=== PATIENT | female | born 1950 | race Caucasian/White ===

== ENCOUNTER → 2020-05-03 09:47 | Outpatient (BNVA) | payer MEDICARE, SELFPAY | PROVIDERS: Visit Provider Obstetrics & Gynecology | DX: N81.10 Cystocele, unspecified (principal) | CPT/HCPCS: 81000 ==

== ENCOUNTER → 2020-05-17 13:04 | Outpatient (BNVA) | payer MEDICARE, SELFPAY | PROVIDERS: Visit Provider Obstetrics & Gynecology | DX: N81.10 Cystocele, unspecified (principal); N81.4 Uterovaginal prolapse, unspecified; N81.6 Rectocele; Z20.828 Contact with and (suspected) exposure to other viral communicable diseases | CPT/HCPCS: 87635 ==

== ENCOUNTER 2020-05-22 11:37 | Observation (INO) | payer MEDICARE, SELFPAY ==
[2020-05-20 12:25] VITALS: BMI 30.5
[2020-05-20 13:18] LABS: Add Urine Microscopic? NO
--- NOTE | 2020-05-20 13:18 | P.ANESASSM_ITS ---
Pre-Anesthetic Assessment Pre-Anesthetic Assessment: Height/Weight: Height 1.7 m Weight 88.451 kg Preop Diagnosis: Cystocele, rectocele, uterine prolapse Proposed Procedure: Operation Date: 05/22/20 12:05 Proposed Procedures p Total Vaginal Hysterectomy 38605 N81.4 N81.10 N81.6(Not Applicable) - Bismark Zapata MD s Colporrhaphy Anterior augmented with Allograft 34721(Not Applicable) - Bismark Zapata MD s Posterior Repair Posterior Colporrhaphy augmented with Allograft 08674(Not Applicable) - Bismark Zapata MD s Midurthral Single incision Sling 38197(Not Applicable) - Bismark Zapata MD s Bilateral Sacrospinous Ligament Suspension 70241(Bilateral) - Bismark Zapata MD Familial anesthetic complications: none Social: Social History: No alcohol and No tobacco Exam: Pre-Anes Outpt Exam: alert, oriented x 3, clear to auscultation bilater ally and regular rate & rhythm Airway: Cervical ROM: WNL MP: 4 Dentition: Caps and Other (mising ) GI: GI: GERD and Hiatus hernia Anesthetic Plan: ASA status: 1 Anesthesia: General Risk of > 500 ml blood loss (7ml/kg in children): No PFSH Anesthesia PFSH: Family History Sister Breast cancer, Onset Age: 37 Thyroid condition Mother Diabetes Brother Hypertension Denies family history of Clotting disorder Hyperlipidemia Anesthesia complication Bleeding disorder Stroke Social History (Updated 05/20/20 @ 08:49 by Michela Brenner RN) Smoking and tobacco status: former smoker Quit status (tobacco): has quit using tobacco Year quit tobacco: 30 years ago Alcohol intake: never Substance/Drug Use: never Data Anesthesia CBC & Chem 7: 05/20/20 13:08 05/20/20 13:08 Cardiac Studies: No Data to Display
[2020-05-20 13:25] LABS: Bilirubin Urine Neg (Negative); Blood Urine Neg (Negative); Glucose Urine UA Norm (Normal); Ketones Urine Negative (Negative); Leukocyte Esterase Urine Negative (Negative); Nitrate Urine Negative (Negative); Protein Urine Neg (Negative); Urine Appearance Clear (CLEAR); Urine Color Yellow (Yellow); Urobilinogen Urine Norm (Negative); pH Urine 7 (5-7)
[2020-05-20 13:33] LABS: Basophils % 0.5 %; Eosinophils # 0.1 10^3/uL (0.0-0.8); Eosinophils % 2.3 %; Hematocrit 43.4 % (37.0-47.0); Hemoglobin 14.3 g/dL (11.5-15.3); Lymphocytes # 1.5 10^3/uL (0.8-4.8); Lymphocytes % 24.3 %; Mean Corpuscular HGB Conc 32.9 g/dL (30.0-36.0); Mean Corpuscular Hemoglobin 29.4 pg (28.0-34.0); Mean Corpuscular Volume 89.3 fL (81-99); Mean Platelet Volume 10.7 fL (7.4-10.4); Monocytes # 0.5 10^3/uL (0.2-0.9); Monocytes % 7.5 %; Neutrophils # 3.89 10^3/uL (1.8-7.7); Neutrophils % 65.2 %; Nucleated Red Blood Cells % 0 %; Platelet Count 256 10^3/cmm (130-400); Red Blood Count 4.86 10^6/uL (4.1-5.3); Red Cell Distribution Width 12.9 % (12.1-15.1)
[2020-05-20 14:41] LABS: Alanine Aminotransferase 18 U/L (0-33); Albumin Level 4.5 g/dL (3.5-5.2); Alkaline Phosphatase 58 IU/L (35-105); Anion Gap 16.3 (5-19); Aspartate Amino Transferase 16 U/L (0-32); Blood Urea Nitrogen 12 mg/dL (8-23); Calcium 8.7 mg/dL (8.5-10.5); Carbon Dioxide 23 mmol/L (22-29); Chloride 105 mmol/L (98-107); Globulin 2.9 g/dL (1.3-4.6); Glucose 94 mg/dL (65-115); Osmolality Calculated 290 mOsm/kg (285-295); Potassium 4.3 mmol/L (3.5-5.1); Sodium 140 mmol/L (136-145); Total Bilirubin 0.2 mg/dL (0.15-1.2); Total Protein 7.4 g/dL (6.6-8.7)
[2020-05-22] VITALS (17 sets, daily range): BP systolic 105–168; BP diastolic 58–107; PULSE 76–102; RESP 12–23; TEMP 36.4–36.8; O2SAT 91–99
--- NOTE | 2020-05-22 07:20 | ECG_ITS ---
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 Measurements Intervals Fromberg Rate: 79 P: 32 WV: 131 QRS: 5 QRSD: 89 T: 58 QT: 378 QTc: 436 Interpretive Statements SINUS RHYTHM No previous ECG available for comparison Electronically Signed On 05-22-2020 13:57:21 CDT by Romelia Arriola M.D. [email or web address]
[2020-05-22] MEDS: enoxaparin 30 mg/0.3 mL Syringe SUBCUT (07:40)
[2020-05-22] MEDS: scopolamine 1.5 Patch 1 PATCH TRANSDERMA (07:42)
[2020-05-22] MEDS: sodium chloride 0.9% 1,000 ML 30 ML IV (07:45)
[2020-05-22] MEDS: sodium chloride 0.9% 500 ML IV (07:46)
--- NOTE | 2020-05-22 08:30 | P.HPUD_ITS ---
Surgery/Procedure H&P Update DATE OF PROCEDURE: May 22, 2020 DATE H&P PERFORMED: 05/20/20 H&P UPDATE INFORMATION: I have reviewed H&P completed within last 30 days, I have examined patient prior to procedure and No changes to prior documentation PREOP DIAGNOSIS: Cystocele, rectocele, uterine prolapse PLANNED PROCEDURE: Operation Date: 05/22/20 08:30 Proposed Procedures p Total Vaginal Hysterectomy 14299 N81.4 N81.10 N81.6(Not Applicable) - Bismark Zapata MD s Colporrhaphy Anterior augmented with Allograft 74365(Not Applicable) - Bismark Zapata MD s Posterior Repair Posterior Colporrhaphy augmented with Allograft 75044(Not Applicable) - Bismark Zapata MD s Midurthral Single incision Sling 24791(Not Applicable) - Bismark Zapata MD s Bilateral Sacrospinous Ligament Suspension 74780(Bilateral) - Bismark Zapata MD
--- NOTE | 2020-05-22 08:30 | W.PM.OPSUD ---
Surgery/Procedure H&P Update DATE OF PROCEDURE: May 22, 2020 DATE H&P PERFORMED: 05/20/20 H&P UPDATE INFORMATION: I have reviewed H&P completed within last 30 days, I have examined patient prior to procedure and No changes to prior documentation PREOP DIAGNOSIS: Cystocele, rectocele, uterine prolapse PLANNED PROCEDURE: Operation Date: 05/22/20 08:30 Proposed Procedures p Total Vaginal Hysterectomy 32139 N81.4 N81.10 N81.6(Not Applicable) - Bismark Zapata MD s Colporrhaphy Anterior augmented with Allograft 36776(Not Applicable) - Bismark Zapata MD s Posterior Repair Posterior Colporrhaphy augmented with Allograft 86385(Not Applicable) - Bismark Zapata MD s Midurthral Single incision Sling 50209(Not Applicable) - Bismark Zapata MD s Bilateral Sacrospinous Ligament Suspension 34868(Bilateral) - Bismark Zapata MD
[2020-05-22] MEDS: citric acid-sodium citrate 30 mL UDC PO (08:32)
[2020-05-22] MEDS: metoclopramide 5 mg/mL SDV 2 mL 10 MG IVP (08:33)
[2020-05-22] MEDS: ceFOXitin 2,000 MG in sodium chloride 0.9% (plus) 50 ML 100 MG IV (08:39)
[2020-05-22] MEDS: estrogens Conjugated Cream 30 gm 1 APPLIC VAGINAL (10:56)
--- NOTE | 2020-05-22 11:35 | SUR.PHASEI ---
1131 PATIENT TO PACU FROM OR. RR EVEN AND UNLABORED. ORAL AIRWAY IN PLACE. SPO2 94% ON SIMPLE MASK AT 8L. SIN CATH IN PLACE.
--- NOTE | 2020-05-22 11:40 | SUR.PHASEI ---
1140 ORAL AIRWAY REMOVED. SPO2 96% ON SIMPLE MASK AT 8L.
--- NOTE | 2020-05-22 11:46 | P.OP_ITS ---
Operative Report Date of procedure: May 22, 2020 Pre-op Diagnosis: Cystocele, rectocele, uterine prolapse Post-op diagnosis: same Procedure Done: Total vaginal hysterectomy with anterior colporrhaphy augmented with allograft, posterior colporrhaphy, and mid urethral sling. Surgeon: Bismark Zapata MD Anesthesia: General Estimated blood loss (mL): 100 IV fluids (mL): 1,300 Urine output (mL): 400 Condition: stable Disposition: PACU Procedure: After informed consent, the patient was taken to the operating room where general anesthesia was administered. She was placed in the dorsal lithotomy position and prepped and draped in sterile fashion. Pre-Procedure Time-Out verifying the correct patient identity, correct procedure verified with consent, correct site and side, correct patient position, availability of correct implants and any special equipment or requirements was performed and acknowledge by the OR team. A weighted speculum was placed in the posterior vaginal wall and the right-angle retractor used to visualize the cervix. The cervix was grasped across the anterior lip with a single-toothed tenaculum and circumferentially infiltrated with 1% Xylocaine with epinephrine at this time. The cervix was circumferentially excised with the scalpel. The vaginal mucosa was dissected superiorly with sharp dissection. The anterior peritoneal reflection was identified, and it was entered with Metzenbaum scissors. A posterior colpotomy was made through the cul-de-sac space. The posterior peritoneum was identified in similar fashion and Metzenbaum scissors were used to enter the cul-de-sac. At this time, a weighted speculum was placed, advanced posteriorly into the cul-de-sac. At this time, the left and right uterosacral ligaments were isolated and ligated with 0 Vicryl. The Enseal device was then used in a serial fashion up through the cardinal ligaments bilaterally. Finally, the uterine arteries were cross-clamped, cut, and ligated with the Enseal device. Enseal device was then used up through the broad ligaments superiorly and finally the uterus was rotated posteriorly. The left and right tubes were then cross- clamped and ligated with Enseal device. The uterus was excised and submitted for pathologic evaluation. No other abnormalities were noted in the pelvic cavity. Tag sutures had been left on the remnants of the uterosacral ligaments. The right uterosacral ligament tag was placed under traction to identify the remnants of the right uterosacral ligament. A #0 PDS suture was placed to the proximal right uterosacral ligament and sutured to the anterior and posterior pelvic fascia beneath the vaginal cuff on the right side. Identical process was performed on the left, although some difficulty was encountered in identifying and actually suturing through the attenuated left uterosacral ligament. Both these sutures were tied to elevate the vaginal cuff. The remaining vaginal cuff mucosa and anterior and posterior fascia were then closed. At this time, instruments were removed from the patient's abdominopelvic cavity. Vaginal cuff closure and peritoneum were incorporated into one layer with 0 Vicryl suture in a continuous running interlocking fashion. Hemostasis was noted to be achieved. A vertical midline incision was made beneath the midurethra, nearly 1.5 cm length. Careful submucosal dissection was performed bilaterally up to the interior portion of the inferior pubic ramus. The insertion of adductor longus tendon on the patient?s pubic ramus was identified as reference land jennifer. Palpated the notch along the internal edge of ischiopubic ramus where the adductor longus tendon and the inferior pubic ramus meet. The needle of the SIS inserted aiming at the location of this notch. One of the integrated self-fixating tips place onto the needle by sliding it over the end of the needle. The needle/sling assembly was inserted toward the location of identified reference notch making sure that the flat of the handle is perpendicular to the desired path. The needle was tracked along the posterior surface of the ischiopubic ramus until the midline jennifer on the mesh is approximately at the midline position under the urethra. The needle was removed and the same was repeated on the contralateral side until the appropriate sling tension under the urethra was achieved ensuring that the mesh lays flat. The needle was removed and vaginal incision was closed in a running interlocking fashion with 2-0 Vicryl. Then an anterior colporrhaphy was performed. The vaginal mucosa was then injected in the midline with normal saline. The vaginal mucosa was then injected in the midline with normal saline. The vaginal mucosa was scored in the midline with the Bovie approximately 1 cm medial to the urethral meatus to 1 cm distal to the [vaginal cuff/cervix]. This vaginal mucosa was then undermined and then incised in the midline with the Metzenbaum scissors. The lateral aspects of the vaginal mucosa were then grasped with the Allis clamps and the vaginal mucosa was then dissected off the underlying fascia with the Metzenbaum scissors. Again, there was noted to be quite a bit of oozing at the incision, which was controlled with cautery. After adequate dissection was performed, bilaterally. An ACell MatriStem Pelvic Floor Matrix is modified at time of application to fit spacea, 4 x 4 cm piece . MatriStem PFM placed in front of cystocele ready to be implanted with the Basement Membrane facing the vagina mucosa. Suture is placed at distal end of graft and placed towards vaginal cuff. Final suture is placed on proximal portion of the graft to complete the placement overlying the bladder. Then Interrupted vertical mattress sutures of 0 Vicryl were used to elevate the cystocele superiorly. The excessive vaginal mucosa was then trimmed with the Metzenbaum scissors and the vaginal mucosa was then reapproximated in the running interlocking fashion with 2-0 Vicryl. Then a Posterior colpoperineorrhaphy was performed with Allis clamps to grasp hymenal caruncles to allow 2-3 fingerbreadths caliber; infiltrated with 1% Lidocaine with epinephrine before triangular incision to excise fibrotic subdermal rectovaginal tissue from old perineal laceration. Fascia dissected off towards vaginal cuff and deemed weakened and thinned-out in midline; colporrhaphy performed with interrupted mattress 0-Vicryl sutures and a perineal body after a separate crown stitch with 0-Vicryl was performed. The patient was given IV Indigo carmine. Field irrigated; hemostasis secured before vaginal incision closed running-locked with 3-0 Vicryl. Then the Alamo catheter was removed and cystoscope was inserted. The bladder was filled with sterile water. Complete evaluation of the bladder mucosa was performed noting no lacerations, dimpling, tears, bleeding of the mucosa or muscular layers. Both ureteral orifices were identified. Prompt excretion of urine from both ureteral orifices was noted. Cystoscope was withdrawn. Alamo catheter was then placed yielding clear blue urine. A vaginal packing with Premarin cream was placed to provide support during the healing process. The patient tolerated the procedure well and was taken to the recovery room in a stable condition. Sponge and needle counts were correct x3.
--- NOTE | 2020-05-22 12:00 | PM.PACU ---
PACU note Post-Anesthesia Exam: awake and vital signs stable Disposition: admitted
--- NOTE | 2020-05-22 12:15 | SUR.PHASEI ---
1200 PATIENT TO OB. DENIES PAIN. ALERT, DROWSY. RR EVEN AND UNLABORED.
--- NOTE | 2020-05-22 12:24 | PC.NURSE ---
Pt has vaginal packing
[2020-05-22] MEDS: ketorolac 30 mg/mL INJ IVP ×2 (14:52→21:21)
[2020-05-22] MEDS: docusate sodium 100 mg Capsule PO (17:18)
[2020-05-22] MEDS: dextrose 5%-lactated ringers 1,000 ML 125 ML IV (17:18)
[2020-05-23] MEDS: dextrose 5%-lactated ringers 1,000 ML 125 ML IV (01:11)
[2020-05-23] MEDS: ketorolac 30 mg/mL INJ IVP ×2 (03:42→08:06)
[2020-05-23 04:15] VITALS: BP 146/74; PULSE 69; RESP 17; O2SAT 94
[2020-05-23 05:11] LABS: Hematocrit 36.2 % (37.0-47.0); Hemoglobin 11.5 g/dL (11.5-15.3); Mean Corpuscular HGB Conc 31.8 g/dL (30.0-36.0); Mean Corpuscular Hemoglobin 29.5 pg (28.0-34.0); Mean Corpuscular Volume 92.8 fL (81-99); Mean Platelet Volume 10.6 fL (7.4-10.4); Platelet Count 174 10^3/cmm (130-400); Red Cell Distribution Width 13.1 % (12.1-15.1); White Blood Count 5.2 10^3/uL (4.0-10.0)
--- NOTE | 2020-05-23 07:44 | PC.NURSE ---
RAILWAY SWITCH OPERATOR PERFORMED BLADDER SCAN ON PT POST VOID, RESIDUAL NOTED BY SCANNER TO BE 130ML.
[2020-05-23] MEDS: multivitamin therapeutic Tablet 1 TAB PO (08:06)
[2020-05-23] MEDS: citalopram 20 mg Tablet PO (08:06)
[2020-05-23] MEDS: docusate sodium 100 mg Capsule PO (08:06)
[2020-05-23] MEDS: omega-3 fatty acids 1,000 mg Capsule 1000 MG PO (08:06)
[2020-05-23] MEDS: pantoprazole DR 40 mg Tablet PO (08:06)
--- NOTE | 2020-05-23 08:37 | PM.OBGYDC ---
Discharge Providers FISHER SPONGE HOOKING Date of Admission: 05/22/20 11:37 Date of Discharge: 05/23/20 Attending Provider at Admission: Bismark Zapata MD Attending Provider at Discharge: Bismark Zapata MD Primary Care Provider: Indigo Eduardo Diagnoses at Discharge Discharge Diagnosis (1) Urinary, incontinence, stress female: Status: Acute Problem details: resolved (2) Uterine prolapse: Status: Acute Problem details: resolved Reason for Visit Reason for Visit: total vaginal hysterectomy,anterior and posterior Hospital Course Hospital Course: 69-year-old female uterine prolapse I, cystocele stage II and rectocele stage II. Admitted for planned total vaginal hysterectomy with anterior colporrhaphy augmented with allograft, mid urethral sling, and posterior colporrhaphy. Procedures were performed without complication. Postop overnight observation uneventful. Urine output adequate, PVR within normal limits. Tolerating diet well, ambulating without difficulty. Denied any pain. She is afebrile hemodynamically stable. Physical Exam Const: COMMON NORMALS: patient oriented x3, alert and well nourished GENERAL APPEARANCE: comfortable, well kempt and other (Normal Posture) Resp: COMMON NORMALS: clear to auscultation bilaterally EFFORT & INSPECTION: Yes able to speak in complete sentences AUSCULTATION: clear to auscultation bilaterally Cardio: COMMON NORMALS: regular rate, regular rhythm, S1 normal heart sound present and S2 normal heart sound present RATE: regular rate RHYTHM: regular rhythm HEART SOUNDS: S1 normal heart sound present, S2 normal heart sound present and no murmurs GI: COMMON NORMALS: Soft to palpation and non-tender PALPATION: Yes Soft to palpation, No Rebound tenderness present and Yes Other GI palpation findings present (No distention, no rigidity ) : EXTERNAL FEMALE EXAM: Yes normal appearance of the urethra SPECULUM EXAM - VAGINA: No vaginal bleeding OB/EXTERNAL & SPECULUM: No vaginal bleeding Neuro: COMMON NORMALS: patient oriented x3 SENSORIUM/ORIENTATION: Yes alert Psych: APPEARANCE: Yes well kempt Urinary Catheter Management^: Alamo: Cath Placed During This Visit: yes Urinary Catheter Date of Insertion: 05/22/20 Urinary Catheter Time of Insertion: 09:17 Discharge Data Data Completed and Pending: Pending at discharge Category Date Time Status Pathology: Surgic al [PTH] Routine Pth 05/22/20 11:34 Received Labs from last 24 hours 05/23/20 05:05 WBC 5.2 RBC 3.90 L Hgb 11.5 Hct 36.2 L MCV 92.8 MCH 29.5 MCHC 31.8 RDW 13.1 Plt Count 174 MPV 10.6 H Vitals: Last Vital Signs Temp 98.0 F 05/22/20 22:40 Pulse 69 05/23/20 04:15 Resp 17 05/23/20 04:15 BP 146/74 05/23/20 04:15 Pulse Ox 94 05/23/20 04:15 Discharge Plan Discharge Patient Disposition: Home Condition: Stable Prescriptions: [place] 5-325 mg tablet 1 tab PO Q4H PRN (Reason: pain) Qty: 30 RF: 0 docusate sodium [Colace] 100 mg capsule 100 mg PO BID 15 Days Qty: 30 RF: 0 acetaminophen 325 mg capsule 325 mg PO Q4H PRN (Reason: fever or pain) Qty: 60 RF: 0 ibuprofen 800 mg tablet 800 mg PO TID PRN (Reason: pain) Qty: 60 RF: 0 Continued bupropion HCl 75 mg tablet 75 mg PO DAILY RF: 0 citalopram 20 mg tablet 20 mg PO DAILY RF: 0 omeprazole 20 mg capsule,delayed release(DR/EC) 20 mg PO DAILY RF: 0 calcium carbonate [Calcium 600] 600 mg calcium (1,500 mg) tablet 600 mg PO DAILY RF: 0 multivitamin Tablet 1 tab PO DAILY RF: 0 Vision Formula(P-Z-S-Zn-Se-Cu) 1,000 unit-60 mg-30 unit tablet 1 tab PO DAILY RF: 0 omega-3 fatty acids [Fish Oil Concentrate] 1,000 mg capsule 1,000 mg PO DAILY RF: 0 Discharge Orders: Discharge Order (Routine); Ordered 05/23/20 Ordered By: Bismark Zapata Referrals: Bismark Zapata MD [Physician] - 2 weeks Discharge Diet: As Directed Discharge Activity: Increase activity as tolerated Patient Instructions: Vaginal Hysterectomy (DC), OB Discharge Report, OB Food/Drug Interaction Guide Activity Restrictions/Additional Instructions: Pelvic rest for 6 weeks (no sex, no tampons, no vaginal douches). Return to the emergency room if any fever, increased bleeding or pain.. 1. Please call [facility] on next working day to make your post-operative appointment in 2 weeks. 2. Please stay home until you come back to the clinic on first post-operative check up. 3. Please follow instructions on your medications CAREFULLY. 4. If you have abdominal incision, do not cover it unless dressing is necessary because of drainage. OK to shower, but avoid bath. Leave steri-strips until they fall off. If they are still on one week after surgery, you may remove them. 5. If you had vaginal surgery, your doctor may instuct you to take SITZ bath. 6. Yellow, blood tinged odorous vaginal discharge is usually normal after hysterectomy or vaginal surgeries. 7. No sexual intercourse, tampons, or douches until you are completely released from the post-operative care. 8. Avoid constipation by eating right and maybe using some Metamucil or Milk of Magnesia. 9. All presciption refills are given during the working hours. Please do no wait till it runs out. Call the clinic at [phone] before your medication runs out. The clinic will get in touch with your doctor to prescribe medications if necessary. 10. Please remain within 40 mile radius from our hospital because emergencies do happen now and then during the post-operative period. 11. If you have stairs at home, take one step at a time slowly and minimize the number of trips. It helps to stay in one floor for the next few days. No lifting except what you can lift by one hand until you are released from the post-operative care. 12. Driving is discouraged until you are well healed. It may be 3-4 weeks before you feel strong enough to drive. You should be able to turn and look throught the rear window without pain and you should be able to push the brake pedal very hard without pain before you drive. No fast rules, but SAFETY should be your primary concern. DO NOT drive if you are on sedating medications such as narcotics. 13. Call the clinic (during working hours) to make urgent appointment or go to the Emergency room, if any of the following occurs: i. Vaginal bleeding becomes heavy, more than a period. ii. Incision becomes red and sore, or drains pus. iii. Your temperature is over 100.4 or you have chill. iv. IV site becomes red and swollen (a little ?knot? is usually OK) v. Persistent nausea and vomiting vi. Persistent constipation or diarrhea vii. Rash or allergic reaction to medications. Discharge Attestations FISHER SPONGE HOOKING Time Spent in Discharge Care*: greater than 30 min Specific Discharge Activities: Specific discharge activities: educating patient Coding Level of Care Code Acute Oracle Adf Consultant for Ayse Fwd Diagnoses Urinary, incontinence, stress female N39.3 Uterine prolapse N81.4
[2020-05-23 09:16] VITALS: BP 159/73; PULSE 81; RESP 18; TEMP 36.6; O2SAT 95
== END 2020-05-23 10:00 | disposition home or self-care (01) ==
LOC: OBGYN 11:38
PROVIDERS: Admitting Provider Obstetrics & Gynecology; PCP Nurse Practitioner Family; Visit Provider Obstetrics & Gynecology
PROC: (CPT 57260; principal; 2020-05-22 08:30)
PROC: 0JQC0ZZ Repair Pelvic Region Subcutaneous Tissue and Fascia, Open Approach (ICD-10-PCS; CPT 57240; 2020-05-22 08:30)
PROC: (CPT 57250; 2020-05-22 08:30)
PROC: (CPT 57288; 2020-05-22 08:30)
DX: N81.4 Uterovaginal prolapse, unspecified (principal); N39.3 Stress incontinence (female) (male); Z80.3 Family history of malignant neoplasm of breast; Z87.891 Personal history of nicotine dependence
CPT/HCPCS: 57260; 57267; 57288; 58260; 12345; 36415; 51798; 80053; 81003; 85025; 85027; 86850; 86900; 88307; 93005; 96361; 96365; 96372; 96374; 96375; C1713; C1762; G0378; J0131; J0694; J1650; J1885; J1940; J2370; J2704; J2765; J3010; J3490; J7030; J7040

== ENCOUNTER 2021-04-25 06:50 | Outpatient (CLI) | payer MEDICARE, SELFPAY ==
[2021-04-25 07:10] VITALS: BP 138/75; PULSE 82; RESP 20; TEMP 36.9; O2SAT 97
[2021-04-25 08:34] VITALS: BP 117/69; PULSE 85; RESP 16; TEMP 36.9
== END 2021-04-25 08:37 | disposition home or self-care (01) ==
LOC: OPS 06:56
PROVIDERS: PCP Nurse Practitioner Family; Visit Provider Nurse Practitioner Family
DX: U07.1 COVID-19 (principal)
CPT/HCPCS: 96365

== ENCOUNTER → 2023-11-17 10:48 | Outpatient (BNVA) | payer MEDICARE, SELFPAY | PROVIDERS: PCP Nurse Practitioner Family; Visit Provider Specialist | DX: M65.341 Trigger finger, right ring finger | CPT/HCPCS: 20600; 73130; 99204; J1100; J2795; J3301 ==